=== PATIENT | male | born 1975 | race Two or more races ===

== ENCOUNTER 2018-01-23 15:38 | Emergency (ER) | payer OTHER ==
[~2018-01-23] VITALS: Ht 180.3 cm; Wt 117.9 kg
[~2018-01-23 15:38] MED LIST: ATENOLOL25 MG PO; AVAPRO300 MG PO; LEVSIN/SL0.125 MG SL; NORVASC5 MG PO; PRILOSEC20 MG PO
== END 2018-01-23 21:34 | disposition home or self-care (01) ==
LOC: ER 15:38
DX: S60.211A Contusion of right wrist, initial encounter (principal); S30.0XXA Contusion of lower back and pelvis, initial encounter; W18.39XA Other fall on same level, initial encounter; Y93.89 Activity, other specified; Y92.098 Other place in other non-institutional residence as the place of occurrence of the external cause; Y99.8 Other external cause status

== ENCOUNTER 2018-07-12 07:45 | Emergency (ER) | payer OTHER ==
[~2018-07-12] VITALS: Ht 182.9 cm; Wt 117.9 kg
[2018-07-12] MEDS ORDERED: MICARDIS80 MG PO (08:05)
[2018-07-12] MEDS ORDERED: CRESTOR10 MG PO (08:07)
== END 2018-07-12 11:45 | disposition home or self-care (01) ==
LOC: ER 07:45
DX: R51 Headache (principal)

== ENCOUNTER 2018-09-20 09:44 | Emergency (ER) | payer OTHER ==
[~2018-09-20] VITALS: Ht 180.3 cm; Wt 117.9 kg
[~2018-09-20 09:44] MED LIST changes: +CRESTOR10 MG PO; +MICARDIS80 MG PO
== END 2018-09-20 12:34 | disposition home or self-care (01) ==
LOC: ER 09:44
DX: K52.9 Noninfective gastroenteritis and colitis, unspecified (principal)

== ENCOUNTER 2023-06-16 07:20 | Emergency (ER) | payer OTHER ==
[~2023-06-16] VITALS: Ht 180.3 cm; Wt 117.9 kg
[2023-06-16] MEDS ORDERED: GUAIFENESIN/DEXTROMETHORPHAN 100 MG/5 ML ML PO ONE (08:45)
[2023-06-16 09:04] LABS: HEMATOCRIT 45.5 % (39.0-48.0); HEMOGLOBIN 15.5 g/dL (13-16.00); MEAN CELL VOLUME 85.4 fL (80.0-100.00); MEAN CORPUSCULAR HEMOGLOBIN 29.2 pg (27.00-32.0); MEAN CORPUSCULAR HGB CONC 34.1 g/dl (32.0-36.0); RED BLOOD COUNT 5.32 M/uL (4.00-6.00); RED CELL DISTRIBUTION WIDTH 13.8 % (11.5-14.5)
[2023-06-16 09:09] LABS: PLATELET COUNT 123 K/uL (150-450)
[2023-06-16 09:28] LABS: ALBUMIN 3.9 gm/dL (3.4-5.0); BILIRUBIN TOTAL 1.32 mg/dL (0.3-1.2); CALCIUM 8.9 mg/dL (8.5-10.1); CREATININE SERUM 0.8 mg/dL (0.70-1.30); GFR 104.07; GLOBULINA 2.7 G/DL (2.4-3.5); POTASSIUM 4.04 mEq/L (3.5-5.1); TOTAL PROTEIN 6.6 gm/dL (6.4-8.2)
== END 2023-06-16 13:58 | disposition home or self-care (01) ==
LOC: ER 07:20
PROVIDERS: Emergency Medicine
DX: J40 Bronchitis, not specified as acute or chronic (principal); I10 Essential (primary) hypertension; Z88.2 Allergy status to sulfonamides

== ENCOUNTER 2025-03-19 13:14 | Emergency (ER) | payer OTHER ==
[~2025-03-19] VITALS: Ht 180.3 cm; Wt 113.4 kg
[2025-03-19 16:11] LABS: BASO % 0.1 % (0.1-1.2); EOS # 0.01 (0.04-0.54); EOS % 0.1 % (0.7-7.0); LYMPH # 1.33 (1.18-3.74); LYMPH % 16.4 % (19.3-53.1); MEAN PLATELET VOLUME 10.70 fl (9.4-12.4); MONO # 0.58 (0.24-0.82); MONO % 7.1 % (4.7-12.5); NEUT # 6.17 (1.56-6.13); NEUT % 76.1 % (34.0-71.1); RED CELL DISTRIBUTION WIDTH 13.0 % (11.6-14.4)
[2025-03-19 16:32] LABS: INR 1.08
[2025-03-19 16:37] LABS: ALT/SGPT 132 U/L (12-78); AST/SGOT 73 U/L (15-37); BILIRUBIN TOTAL 1.55 mg/dL (0.3-1.2); BILIRUBIN,CONJUGATED 0.36 mg/dL (0.0-0.2); BUN CREA RATIO 13 (7.0-25.0); CREATININE SERUM 0.87 mg/dL (0.70-1.30); GFR 93.66; GLUCOSE FASTING 113 mg/dL (65-100); OSMOLALITY SERUM 280 MOSM/KG (275-295)
[2025-03-19] MEDS ORDERED: ANALPRAM HC 2.530 GM RECTAL (19:48)
== END 2025-03-19 20:47 | disposition home or self-care (01) ==
LOC: ER 13:15
PROVIDERS: Behavior Technician
DX: K64.8 Other hemorrhoids (principal); K57.30 Diverticulosis of large intestine without perforation or abscess without bleeding; K76.0 Fatty (change of) liver, not elsewhere classified; Z88.2 Allergy status to sulfonamides